=== PATIENT | male | born 1955 ===

== ENCOUNTER → 2020-07-16 10:59 | Outpatient (REF) | payer BC, SELFPAY | LOC: ANHLAB 10:59 | PROVIDERS: PCP Specialist; Visit Provider Nurse Practitioner | DX: C44.319 Basal cell carcinoma of skin of other parts of face (principal); C44.329 Squamous cell carcinoma of skin of other parts of face; C44.529 Squamous cell carcinoma of skin of other part of trunk | CPT/HCPCS: 88305 ==

== ENCOUNTER → 2020-08-26 07:25 | Outpatient (REF) | payer BC, SELFPAY | LOC: ANHLAB 07:25 | PROVIDERS: PCP Specialist; Visit Provider Nurse Practitioner | DX: C44.329 Squamous cell carcinoma of skin of other parts of face (principal); C44.319 Basal cell carcinoma of skin of other parts of face | CPT/HCPCS: 88305; 88331; 88332 ==

== ENCOUNTER → 2020-09-02 07:00 | Outpatient (REF) | payer BC, SELFPAY | LOC: ANHLAB 07:00 | PROVIDERS: PCP Specialist; Visit Provider Nurse Practitioner | DX: C44.529 Squamous cell carcinoma of skin of other part of trunk (principal); C44.41 Basal cell carcinoma of skin of scalp and neck | CPT/HCPCS: 88305; 88331 ==

== ENCOUNTER → 2021-02-17 07:01 | Outpatient (REF) | payer BC, SELFPAY | LOC: ANHLAB 07:01 | PROVIDERS: PCP Specialist; Visit Provider Nurse Practitioner | DX: C44.329 Squamous cell carcinoma of skin of other parts of face (principal) | CPT/HCPCS: 88305; 88331 ==

== ENCOUNTER → 2021-02-24 07:08 | Outpatient (REF) | payer BC, SELFPAY | LOC: ANHLAB 07:08 | PROVIDERS: PCP Specialist; Visit Provider Nurse Practitioner | DX: C44.42 Squamous cell carcinoma of skin of scalp and neck (principal) | CPT/HCPCS: 88305; 88331; 88332 ==